=== PATIENT | female | born 1950 | race Hispanic/Latino ===

== ENCOUNTER 2018-05-03 14:28 | Inpatient (IN) | payer MEDICARE ==
[~2018-05-03] VITALS: Ht 154.9 cm; Wt 55.8 kg
--- NOTE | 2018-05-03 15:12 | Diagnostic Imaging Report ---
History:Fall, bleed Comparison studies:None Technique: Axial images were obtained from the skull base to the vertex. Coronal and sagittal images reconstructed from the axial data. Intravenous contrast: None Dose modulation, iterative reconstruction, and/or weight based adjustment of the mA/kV was utilized to reduce the radiation dose to as low as reasonably achievable. Findings: Scalp/skull: Central parieto-occipital scalp hematoma with laceration and subcutaneous emphysema. No underlying fracture. Extra-axial spaces: No masses. No fluid collections. Brain sulci: Mildly prominent. Ventricles: Mild compensatory dilatation. No hydrocephalus. Parenchyma: Few hypodensities in the supratentorial white matter are small vessel ischemic changes. No masses, hemorrhage, acute or chronic cortical vascular insults. Sellar/suprasellar region: No abnormalities. Craniocervical junction: Patent foramen magnum. No Chiari one malformation. Incidental findings: Atherosclerotic calcifications in the carotid siphons . Impression: No acute intracranial abnormalities. Central parieto-occipital scalp hematoma without underlying fracture Chronic findings: 1. Mild generalized volume loss. 2. Mild supratentorial white matter small vessel ischemic changes. Signed by: DR Stuart Kaur M.D. on 05/03/2018 3:09 PM
--- NOTE | 2018-05-03 15:25 | Diagnostic Imaging Report ---
History: Fall, bleed Comparison studies: None Technique: Axial images were obtained through the cervical region.. Coronal and sagittal images reconstructed from the axial data.. Intravenous contrast: None Dose modulation, iterative reconstruction, and/or weight based adjustment of the mA/kV was utilized to reduce the radiation dose to as low as reasonably achievable. Findings: Fractures: None. Soft tissues: No gross abnormalities. Atlantoaxial articulation: Mild degenerative changes without acute abnormality. Alignment: Normal lordosis. No scoliosis. Cervicomedullary junction: No abnormalities. The foramen magnum is patent. Vertebrae: No infection or neoplasm. Degenerative changes: Posterior disc osteophyte complex at C4-5, C5-6 results in mild canal stenosis. Uncinate process hypertrophy and facet hypertrophy results in mild bilateral foraminal narrowing at C5-6. IMPRESSION: 1. No acute cervical spine abnormalities. 2. Cannot exclude ligament, spinal cord and or vascular abnormalities on the basis of this examination. Signed by: DR Stuart Kaur M.D. on 05/03/2018 3:22 PM
--- NOTE | 2018-05-03 15:46 | Diagnostic Imaging Report ---
Examination: Single AP view of the chest. COMPARISON: None. INDICATION: Fall, laceration to back of head DISCUSSION: The lungs are well-inflated and without focal airspace consolidation, pleural effusion, or pneumothorax. Mild enlargement of the cardiac silhouette with fullness of the right hilum likely related to superimposition of vascular structures. No acute osseous abnormality. IMPRESSION: Mild cardiomegaly without vascular decompensation. Signed by: Dr. Gary Servin M.D. on 05/03/2018 3:43 PM
[2018-05-03 15:50] LABS: BASOPHILS # (AUTO) 0.1 (0.0-0.1); BASOPHILS % 0.6 % (0.0-1.0); EOSINOPHILS # (AUTO) 0.5 (0.0-0.4); EOSINOPHILS % 5.1 % (0.0-6.0); HEMATOCRIT 40.8 % (34.2-44.1); HEMOGLOBIN 13.4 g/dL (12.0-16.0); LYMPHOCYTES # (AUTO) 3.1 (1.0-3.2); LYMPHOCYTES % 31.8 % (18.0-39.1); MEAN CORPUSCULAR HEMOGLOBIN 28.2 pg (28-32); MEAN CORPUSCULAR HGB CONC 32.8 g/dL (31-35); MEAN CORPUSCULAR VOLUME 85.7 fL (81-99); MONOCYTES # (AUTO) 0.6 (0.2-0.8); MONOCYTES % 5.7 % (4.4-11.3); NEUTROPHILS # (AUTO) 5.4 (2.1-6.9); NEUTROPHILS % 56.5 % (38.7-80.0); PLATELET COUNT 157 x10e3/uL (140-360); RED BLOOD COUNT 4.76 x10e6/uL (3.6-5.1); RED CELL DISTRIBUTION WIDTH 13.9 % (11.7-14.4)
[2018-05-03 16:01] LABS: INR 0.95; PROTHROMBIN TIME 13.5 seconds (11.9-14.5)
[2018-05-03 16:02] LABS: PARTIAL THROMBOPLASTIN TIME 32.2 seconds (23.8-35.5)
[2018-05-03 16:11] LABS: ALANINE AMINOTRANSFERASE 18 IU/L (0-55); ALBUMIN 4.3 g/dL (3.5-5.0); ALBUMIN/GLOBULIN RATIO 1.3 (0.8-2.0); ALKALINE PHOSPHATASE 103 IU/L (40-150); ANION GAP 16.3 mmol/L (8-16); BLOOD UREA NITROGEN 24 mg/dL (7-26); BUN/CREATININE RATIO 27 (6-25); CALCIUM 9.9 mg/dL (8.4-10.2); CARBON DIOXIDE 23 mmol/L (22-29); CHLORIDE 102 mmol/L (98-107); CREATINE KINASE 61 IU/L (29-168); CREATININE, SERUM 0.88 mg/dL (0.57-1.11); EST GLOMERULAR FILTRATION RATE > 60 ML/MIN (60-); GLUCOSE 119 mg/dL (74-118); MAGNESIUM 2.3 MG/DL (1.3-2.1); POTASSIUM 4.3 mmol/L (3.5-5.1); SODIUM 137 mmol/L (136-145)
[2018-05-03 16:23] LABS: CLARITY,URINE SL CLOUDY (CLEAR); COLOR,URINE YELLOW (YELLOW); KETONES,URINE NEGATIVE (NEGATIVE); LEUKOCYTE ESTERASE ,URINE TRACE (NEGATIVE); NITRITE,URINE NEGATIVE (NEGATIVE); PROTEIN,URINE DIPSTICK 2+ (NEGATIVE); URINE UROBILINOGEN 0.2 mg/dL (0.2 - 1)
[2018-05-03 16:24] LABS: BILIRUBIN,URINE NEGATIVE (NEGATIVE)
--- NOTE | 2018-05-03 16:28 | NUR ---
PT STATES SHE LAST ATE AT BREAKFAST AROUND 0800 TODAY
[2018-05-03 16:33] LABS: RBC,URINE 0-5 /HPF (0-5); WBC,URINE (MAN) 0-5 /HPF (0-5)
[2018-05-03 16:34] LABS: BACTERIA,URINE FEW /HPF; EPITHELIAL CELLS,URINE FEW /LPF; RENAL EPITHELIAL CELLS,URINE FEW
[2018-05-03] MEDS ORDERED: ONDANSETRON HCL INJ 2MG/ML 2ML 2 MG/ML VIAL IV PRN (19:00)
[2018-05-03] MEDS ORDERED: DEXTROSE 50% SYRINGE 50 ML IV PRN (19:00)
[2018-05-03] MEDS ORDERED: ACETAMINOPHEN 325 MG TAB PO PRN (19:00)
--- OUTSIDE RECORDS SUMMARY | 2018-05-03 19:18 | XMS REPORT ---
Author [facility] Address Unknown Phone Unavailable Care Team Providers Care Warehouse Processor Name Role Phone Naomie DOYLE Unavailable Unavailable Problems This patient has no known problems. Allergies, Adverse Reactions, Alerts This patient has no known allergies or adverse reactions. Medications This patient has no known medications. Results Test Description Test Time Test Comments Text Results Atomic Results Result Comments CHEST SINGLE (PORTABLE) 2018-05-03 15:41:00 [place] [address] Patient Name: SAADIA SINGH MR #: [id number] : 1950 Age/Sex: 67/F Req #: [id number] Adm Physician: Ordered by: CALVIN TELLO SUPERVISOR DATA PROCESSING Report #: [id number] Location: ER Room/Bed: Procedure: [id number] DX/CHEST SINGLE (PORTABLE) Exam Date: 05/03/18 Exam Time: 1520 REPORT STATUS: Signed Examination: Single AP view of the chest. COMP ARISON: None. INDICATION: Fall, laceration to back of head DISCUSSION: The lungs are well-inflated and without focal airspace consolidation, pleural effusion, or pneumothorax. Mild enlargement of the cardiac silhouette with fullness of the right hilum likely related to superimposition of vascular structures. No acute osseous abnormality. IMPRESSION: Mild cardiomegaly without vascular decompensation. Signed by: Dr. Lizandro Mills M.D. on 05/03/2018 3:43 PM Dictated By: LIZANDRO MILLS MD [address] [place] ranscribed By: MARCELLA on 05/03/181542 COPY TO: CALVIN TELOL NP CT CERVICAL SPINE WO 2018-05-03 15:09:00 [place] [address] Patient Name: SAADIA SINGH MR #: [id number] : 1950 Age/Sex: 67/F Req #: [id number] Adm Physician: Ordered by: CALVIN TELLO NP Report #: [id number] Location: ER Room/Bed: Procedure: [id number] CT/CT CERVICAL SPINE WO Exam Date: 05/03/18 Exam Time: 1440 REPORT STATUS: Signed History: Fall, bleed Comparison studies: None T echnique: Axial images were obtained through the cervical region.. Coronal and sagittal images reconstructed from the axial data.. Intravenous contrast: None Dose modulation, iterative reconstruction, and/or weight based adjustment of the mA/kV was utilized to reduce the radiation dose to as low as reasonably achievable. Findings: Fractures: None. Soft tissues: No gross abnormalities. Atlantoaxial articulation: Mild degenerative changes without acute abnormality. Alignment: Normal lordosis. No scoliosis. Cervicomedullary junction: No abnormalities. The foramen magnum is patent. Vertebrae: No infection or neoplasm. Degenerative changes: Posterior disc osteophyte complex at C4-5, C5-6 results in mild canal stenosis. Uncinate process hypertrophy and facet hypertrophy results in mild bilateral foraminal narrowing at C5-6. IMPRESSION: 1. No acute cervical spine abnormalities. 2. Cannot exclude ligament, spinal cord and or vascular abnormalities on the basis of this examination. Signed by: DR Stuart Kaur M.D. on 05/03/2018 3:22 PM Dictated By: STUART CARLIN MD 1522 Transcribed By: MARCELLA on 05/03/18 1522 COPY TO: CALVIN TELLO NP CT BRAIN WO 2018-05-03 15:04:00 [place] [address] Patient Name: SAADIA SINGH MR #: [id number] : 1950 Age/Sex: 67/F Req #: [id number] Adm Physician: Ordered by: CALVIN TELLO SUPERVISOR DATA PROCESSING Report #: [id number] Location: ER Room/Bed: Procedure: [id number] CT/CT BRAIN WO Exam Date: 05/03/18 Exam Time: 1440 REPORT STATUS: Signed History:Fall, bleed Comparison studies:None Technique: Axial images were obtained from the skull base to the vertex. Coronal and sagittal images reconstructed from the axial data. Intravenous contrast: None Dose modulation, iterative reconstruction, and/or weight based adjustment of the mA/kV was utilized to reduce the radiation dose to as low as reasonably achievable. Findings: Scalp/skull: Central parieto-occipital scalp hematoma with laceration and subcutaneous emphysema. No underlying fracture. Extra-axial spaces: No masses. No fluid collections. Brain sulci: Mildly prominent. Ventricles: Mild compensatory dilatation. No hydrocephalus. Parenchyma: Few hypodensities in the supratentorial white matter are small vessel ischemic changes. No masses, hemorrhage, acute or chronic cortical vascular insults. Sellar/suprasellar region: No abnormalities. Craniocervical junction: Patent foramen magnum. No Chiari one malformation. Incidental findings: Atherosclerotic calcifications in the carotid siphons . Impression: No acute intracranial abnormalities. Central parieto- occipital scalp hematoma without underlying fracture Chronic findings: 1. Mild generalized volume loss. 2. Mild supratentorial white matter small vessel ischemic changes. Signed by: DR Stuart Kaur M.D. on 05/03/2018 3:09 PM Dictated By: STUART CARLIN MD Electronically Sig samra By: STUART CARLIN MD on 05/03/18 1500 Transcribed By: MARCELLA on 05/03/18 1505 COPY TO: CALVIN TELLO NP
--- NOTE | 2018-05-03 19:33 | NUR ---
WALKING ROUND DONE WITH BERTHA WINCHESTER
[2018-05-03] MEDS ORDERED: DORZOLAMIDE-TIM10 ML OU (19:35)
[2018-05-03] MEDS ORDERED: METFORMIN HCL850 MG PO (19:35)
[2018-05-03] MEDS ORDERED: LATANOPROST2.5 ML OU (19:35)
[2018-05-03] MEDS ORDERED: LOSARTAN POTASS25 MG PO (19:35)
[2018-05-03] MEDS ORDERED: ATORVASTATIN CA80 MG PO (19:35)
[2018-05-03] MEDS ORDERED: GLIMEPIRIDE4 MG PO (19:35)
[2018-05-03] MEDS ORDERED: ULTRAM 50MG50 MG PO (19:35)
[2018-05-03] MEDS ORDERED: CLOPIDOGREL75 MG PO (19:35)
[2018-05-03] MEDS ORDERED: CARVEDILOL3.125 MG PO (19:35)
[2018-05-03] MEDS ORDERED: MORPHINE SULFATE INJ 4 MG/ML INJ 1ML IV ONE (20:00)
[2018-05-03] MEDS ORDERED: ONDANSETRON HCL INJ 2MG/ML 2ML 2 MG/ML VIAL IV ONE (20:00)
[2018-05-03] MEDS: FAMOTIDINE 20 MG/2 ML VIAL IV SCH (21:00)
[2018-05-03] MEDS: INSULIN LISPRO 100 UNIT/1 ML 3ML VIAL SQ SCH (21:00)
[2018-05-03] MEDS: CARVEDILOL 3.125 MG TAB PO SCH (21:29)
--- NOTE | 2018-05-03 21:44 | NUR ---
PT PLACED ON TELEMETRY BOX 7. REPORT TO BERTHA CLINE. PT TRANSPORTED TO ROOM 114 BY EMT OLIVA.
[2018-05-03 21:50] VITALS: BP 143/69
[2018-05-03 22:20] VITALS: BP 143/69
[2018-05-03 22:30] VITALS: BP 143/69
[2018-05-04] VITALS (7 sets, daily range): BP systolic 98–177; BP diastolic 54–77
[2018-05-04 01:00] LABS: CREATINE KINASE MB 2.8 ng/mL (0-5.0)
[2018-05-04 06:03] LABS: BASOPHILS # (AUTO) 0.1 (0.0-0.1); BASOPHILS % 0.7 % (0.0-1.0); EOSINOPHILS # (AUTO) 0.3 (0.0-0.4); HEMOGLOBIN 12.7 g/dL (12.0-16.0); LYMPHOCYTES # (AUTO) 3.1 (1.0-3.2); LYMPHOCYTES % 36.8 % (18.0-39.1); MEAN CORPUSCULAR HEMOGLOBIN 27.9 pg (28-32); MEAN CORPUSCULAR HGB CONC 31.8 g/dL (31-35); MEAN CORPUSCULAR VOLUME 87.7 fL (81-99); MONOCYTES # (AUTO) 0.7 (0.2-0.8); MONOCYTES % 7.8 % (4.4-11.3); NEUTROPHILS # (AUTO) 4.3 (2.1-6.9); NEUTROPHILS % 50.5 % (38.7-80.0); PLATELET COUNT 150 x10e3/uL (140-360); RED BLOOD COUNT 4.56 x10e6/uL (3.6-5.1); RED CELL DISTRIBUTION WIDTH 14.1 % (11.7-14.4)
[2018-05-04 06:30] LABS: ALANINE AMINOTRANSFERASE 17 IU/L (0-55); ALBUMIN 3.7 g/dL (3.5-5.0); ALBUMIN/GLOBULIN RATIO 1.2 (0.8-2.0); ALKALINE PHOSPHATASE 87 IU/L (40-150); ANION GAP 13.2 mmol/L (8-16); BLOOD UREA NITROGEN 23 mg/dL (7-26); BUN/CREATININE RATIO 28 (6-25); CALCIUM 9.6 mg/dL (8.4-10.2); CARBON DIOXIDE 22 mmol/L (22-29); CHLORIDE 104 mmol/L (98-107); CHOL/HDL RATIO 3.9 (3.0-3.6); CHOLESTEROL 178 MD/DL (0-199); CREATININE, SERUM 0.81 mg/dL (0.57-1.11); EST GLOMERULAR FILTRATION RATE > 60 ML/MIN (60-); GLUCOSE 103 mg/dL (74-118); HDL CHOLESTEROL 46 MG/DL (40-60); LDL CHOLESTEROL 107 MG/DL (60-130); POTASSIUM 4.2 mmol/L (3.5-5.1); SODIUM 135 mmol/L (136-145); TRIGLYCERIDES 123 MG/DL (0-149)
--- NOTE | 2018-05-04 06:57 | NUR ---
REPORT GIVEN TO ONCOMING NURSE,WALKING ROUNDS MADE.PT RESTING IN BED WITH NO S/S OF DISTRESS.
[2018-05-04 07:29] LABS: CREATINE KINASE MB 3.1 ng/mL (0-5.0)
[2018-05-04] MEDS: INSULIN LISPRO 100 UNIT/1 ML 3ML VIAL SQ SCH ×4 (07:30→21:11)
[2018-05-04] MEDS: CARVEDILOL 3.125 MG TAB PO SCH ×2 (09:26→16:29)
[2018-05-04] MEDS: ASPIRIN 81 MG ENTERIC COATED PO SCH (09:26)
[2018-05-04] MEDS: FAMOTIDINE 20 MG/2 ML VIAL IV SCH (09:26)
--- NOTE | 2018-05-04 15:23 | NUR ---
Nutrition Screen Note RD Recommendation for Physician: -Continue ADA diet as ordered Plan of Care: RD following, monitoring for tolerance and adequacy Nutrition reason for involvement: Nutrition Risk Trigger MST Primary Diagnose(s): syncope and fall PMH: DM Ht: 64in Wt: 123lb BMI: 21.1kg/m2 IBW: 120lb RD Assessment: (05/04) Chart reviewed. Labs and meds reviewed. 67yo F, who was admitted s/p syncope. 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 Pt denied chewing/swallowing problems and nausea/vomiting. RN recorded 100% meal intake since admission. LBM 05/03. Son presented on bedside to translate as pt didnt speak Hebrew. Will cont to monitor. Please consult as needed. Current Diet: ADA diet Malnutrition Evaluation (05/04/2018) The patient does not meet criteria for a specified degree of malnutrition at this time. Will re-evaluate at follow-up as appropriate. Diet Education Needs Assessment: Diet education not indicated. Nutrition Care Level: low Signed: Cassidy Franco, MS, RD, LD
--- NOTE | 2018-05-04 15:58 | NUR ---
CASE MANAGEMENT ASSESSMENT Network Intern to bedside to discuss plan of care with patient/family. CM/SW role and care transitions discussed. Anticipated discharge plan discussed along with duration of care. CM/SW discussed patients right to make decisions in care. CM/SW work hours given. Pt asked CM to speak with her son Gary at bedside Patient lives: with her Yasmani Admit/Transfer: thru ED Hospital/ER visits since last admit: last hospitalization about 2 years ago; no ED visits POA/Emergency contact: Gary Beavers [phone]; Yasmani Beavers [phone] Current/Previous Home Health: none PCP/Follow-up Care: Dr. Ayala - pt advised to follow up with MD within 7 days of discharge or as instructed by MD Current/Previous DME: walker - but does not use Medications (referring to index hospitalization or the first time you were in the hospital) a. Were changes made in your medications when you were in the hospital on [date of index hospitalization]? n/a b. Did you understand the changes? n/a c. Were you able to obtain your new medications right away? n/a d. Were you able to take your medications like the doctor wanted you to? n/a e. Did the hospital give you an accurate, easy to understand list of medications when you left? n/a Scale of 1-10 how comfortable does patient feel with disease management in outpatient settin Other Services: none Employment Status: unemployed Areas of Concerns: syncope Referral Needs: none Education Needs: medical management IMM/MCCAIN given and signed (if applicable): MCCAIN in chart Goal for discharge: home CM/SW left business card at the bedside with contact information. Name and number was also written on the patients whiteboard. Patient verbalized understanding of discussion. CM will follow-up with ongoing discharge and transition of care needs.
[2018-05-04] MEDS: METFORMIN HCL 850 MG TAB PO SCH (16:58)
[2018-05-04] MEDS ORDERED: TRAMADOL HCL 50 MG TAB PO PRN (17:00)
[2018-05-04] MEDS ORDERED: ACETAMINOPHEN 325 MG TAB PO PRN ×2 (17:15→17:30)
[2018-05-04] MEDS ORDERED: DORZOLAMIDE/TIMOLOL (OPTH SOL) 10 ML DRPETTE OP SCH (17:15)
--- NOTE | 2018-05-04 17:21 | NUR ---
robert was not notified of consult until 1629 , ordered mri and eeg will see pt tomorrow .
--- NOTE | 2018-05-04 19:18 | Diagnostic Imaging Report ---
ELBOW RIGHT COMPLETE - 3 views HISTORY: Pain. Syncope and collapse. Fall. COMPARISON: None available. FINDINGS: Bones: No acute displaced fracture. Osseous alignment is within normal limits. Joints: The joint spaces are well-maintained. Soft tissues: The soft tissues appear unremarkable. IMPRESSION: No acute radiographic abnormality. Signed by: Dr. Nicholas Limon M.D. on 05/04/2018 7:15 PM
[2018-05-04] MEDS: ATORVASTATIN 40 MG TAB PO SCH (21:10)
[2018-05-04] MEDS: LATANOPROST(OPTH) 2.5 ML BTL OU SCH (21:15)
[2018-05-04] MEDS: DORZOLAMIDE/TIMOLOL/PF 1 EACH DROPERETTE OP SCH (21:24)
[2018-05-05] VITALS (8 sets, daily range): BP systolic 101–195; BP diastolic 53–85
--- NOTE | 2018-05-05 01:43 | History and Physical ---
HISTORY OF PRESENT ILLNESS: A 67-year-old female with past medical history positive for hypertension, diabetes mellitus type 2, coronary artery disease status post stent placement she was talking on the phone and she suddenly collapsed. She has before that happened. REVIEW OF SYSTEMS: CARDIOVASCULAR: No chest pain or palpitation. RESPIRATORY: No shortness of breath or cough. GASTROINTESTINAL: No nausea. No vomiting. PAST MEDICAL HISTORY: Positive for hypertension, diabetes mellitus type 2, coronary artery disease status post stent placement. SOCIAL HISTORY: She does not smoke. She does not drink. PHYSICAL EXAMINATION: VITAL SIGNS: Blood pressure 128/65, temperature 97.1, heart rate 75 per minute, respiratory rate 20 per minute, oxygen saturation 97%. LUNGS: Clear bilaterally. ABDOMEN: Soft. EXTREMITIES: Show no evidence of cyanosis or hematoma. LABORATORY DATA: BMP, sodium 135, potassium 4.2, chloride 104, CO2 is 22, BUN 23, creatinine 0.81, glucose 103. CBC, white . PT 13.5, INR 0.95, PTT 32.2. AST 18, ALT 17, total bilirubin 1.4, CT of the head show microvascular ischemic changes and no significant abnormality. CT of the cervical spine, no fracture. EKG shows sinus rhythm with occasional premature ventricular complexes, left atrial enlargement, right bundle-branch block normal sinus rhythm. There is no evidence of any abnormality. Urinalysis showed positive leukocytes. We are going to order a urine culture. FINAL IMPRESSION: 1. Syncopal episode, rule out seizure. 2. Hypertension. 3. Uncontrolled diabetes mellitus type 2. 4. . 5. Coronary artery disease status post stent placement. PLAN: We are going to resume her home medication. We are going to continue telemetry only for 24 hours. We are going to continue diabetic diet. Continue to monitor sugar before meals and at bedtime. We are going to continue physical and occupational therapy . Echocardiogram showed ejection fraction of 55%-60%, calcified aortic valve, mild mitral regurgitation, trace pericardial effusion. Neurology consult with Dr. Martinez for the possibility of seizures. We are going to order a urine culture also. MD BERYL Hopson/YARELIS /[id number]
[2018-05-05 06:43] LABS: BLOOD UREA NITROGEN 28 mg/dL (7-26); BUN/CREATININE RATIO 31 (6-25); CALCIUM 9.3 mg/dL (8.4-10.2); CARBON DIOXIDE 22 mmol/L (22-29); CHLORIDE 104 mmol/L (98-107); CREATININE, SERUM 0.89 mg/dL (0.57-1.11); EST GLOMERULAR FILTRATION RATE > 60 ML/MIN (60-); GLUCOSE 118 mg/dL (74-118); SODIUM 137 mmol/L (136-145)
[2018-05-05] MEDS: INSULIN LISPRO 100 UNIT/1 ML 3ML VIAL SQ SCH ×4 (07:30→20:36)
[2018-05-05] MEDS: GLIMEPIRIDE 2 MG TAB PO SCH (08:53)
[2018-05-05] MEDS: ASPIRIN 81 MG ENTERIC COATED PO SCH (08:53)
[2018-05-05] MEDS: CARVEDILOL 3.125 MG TAB PO SCH (08:53)
[2018-05-05] MEDS: DORZOLAMIDE/TIMOLOL/PF 1 EACH DROPERETTE OP SCH (08:53)
[2018-05-05] MEDS: METFORMIN HCL 850 MG TAB PO SCH ×2 (08:54→16:20)
[2018-05-05] MEDS: LOSARTAN POTASSIUM 25 MG TAB PO SCH (08:54)
[2018-05-05] MEDS: CLOPIDOGREL BISULFATE 75 MG TAB PO SCH (08:54)
[2018-05-05] MEDS ORDERED: SODIUM CHLORIDE 0.9% 1000ML 1,000 ML IV ONE (09:45)
--- NOTE | 2018-05-05 12:18 | Progress Note ---
DATE: SUBJECTIVE: The patient is doing well today, but yesterday blood pressure dropped in the orthostatic measurements. She is going to go for an MRI of the head and EEG today by Dr. Martinez, neurologist. The patient is undergoing physical and occupational therapy, doing better, but she is still very orthostatic. We are going to start her on IV fluids. PHYSICAL EXAMINATION: VITAL SIGNS: Blood pressure 136/73, temperature 96.5, heart rate 79 per minute, respiratory rate is 16 per minute, oxygen saturation 97%. HEART: Showed regular rhythm. No murmur or added sound. LUNGS: Clear bilaterally. ABDOMEN: Soft. EXTREMITIES: Show no evidence of cyanosis or hematoma. NEUROLOGIC: Alert and oriented x3. No motor deficits. FINAL IMPRESSION: 1. Episode of syncope, rule out seizures, rule out orthotopic hypotension. 2. History of hypertension. 3. Uncontrolled diabetes mellitus type 2. 4. Coronary artery disease, status post stent. 5. Acute renal failure. PLAN: We are going to start normal saline at 125 mL/hour for 1 L. We are going to recheck the BMP later on in the day. We are going to continue monitoring orthostatic blood pressures today. The patient's medications are going to be metformin 800 mg twice a day, glimepiride 6 mg daily. Continue aspirin 81 mg daily, Zofran 4 mg q.4 hours as needed. Continue carvedilol 3.125 mg twice a day, latanoprost at bedtime, Tylenol 325 mg q.4 hours as needed for pain or fever, Plavix 75 mg daily, losartan 25 mg daily, tramadol 50 mg twice a day, and Lipitor 80 mg daily. We are going to get MRI of the head and EEG and when the orthostatic hypotension resolve, the patient may be able to go home. MD BERYL Hopson/YARELIS /[id number]
--- NOTE | 2018-05-05 15:00 | Diagnostic Imaging Report ---
History: Syncope Comparison studies: CT head 05/03/2018 Technique: Sagittal T2; axial DWI, FLAIR, MPGR, T1, Coronal FLAIR. Intravenous contrast: None Findings: Scalp: Evolving midline parieto-occipital scalp hematoma . No masses . Bone marrow: Normal in signal intensity. Extra-axial: No masses, no fluid collections. Brain sulci: Mildly prominent. Ventricles: Normal in size . No hydrocephalus . Parenchyma: Few small T-2/flair hyperintensities of the periventricular and deep white matter No masses, hemorrhage, acute or chronic vascular insults. Suprasellar region: No abnormalities. Craniocervical junction: No abnormalities. Patent foramen magnum. No Chiari one malformation. Vessels: Normal flow-voids in the arteries and sinuses. Slitlike lens on the right eye globe, related to previous intervention IMPRESSION: 1. No acute abnormalities.Evolving midline parieto-occipital scalp hematoma 2. Mild chronic microvascular ischemic changes of the white matter and mild volume loss. Signed by: DR Stuart Kaur M.D. on 05/05/2018 2:57 PM
--- NOTE | 2018-05-05 18:04 | Consultation ---
DATE OF CONSULTATION: 05/05/2018 Cardiology Consultation REASON FOR CONSULTATION: Syncope. HISTORY OF PRESENT ILLNESS: Ms. Beavers is a pleasant 67-year-old woman with a history of diabetes mellitus type 2, hypertension, and CAD with previous HI status post PCI. Follows as outpatient with . She presents to [facility] after developing a sudden episode of loss of consciousness while she was standing talking on the phone. She does not recall any preceding symptoms. She has no other previous episodes like this. On telemetry, she is noted to have episodes of sinus arrest with junctional escape rhythm mixed with episodes of 3-second pauses as well as an EKG with sinus rhythm and bifascicular block concerning for significant conduction disorder. Her beta-bautista has been placed on hold and so as the other chronotropic negative medications, which the patient is not on. REVIEW OF SYSTEMS: A 12-system review is negative except for as noted above. PAST MEDICAL HISTORY: Significant for hypertension, diabetes, CAD. SOCIAL HISTORY: No smoking, alcohol, or drugs. PHYSICAL EXAMINATION: VITAL SIGNS: Temperature 96.5, heart rate 79, blood pressure 136/72, respiratory rate 16, O2 sat 97%. GENERAL: No acute distress, alert and active. NECK: No JVD. CHEST: Clear to auscultation. CARDIOVASCULAR: Regular rate and rhythm. Normal S1 and S2. No S3. No S4. No murmurs. No rubs. ABDOMEN: Soft, nontender, nondistended. EXTREMITIES: No cyanosis, clubbing, or edema. MEDICATIONS: Her cardiovascular medications were reviewed. Coreg 3.125 mg b.i.d., placed on hold/discontinued; clopidogrel 75 mg daily; losartan 25 mg daily; atorvastatin 80 mg at bedtime; dorzolamide-timolol eye drops, which ultimately will be placed on hold. LABORATORY DATA: Creatinine is 0.8. Hemoglobin 12.7, platelet counts 150. INR is 0.9. Normal transaminases. ASSESSMENT: 1. Syncope, arrhythmogenic. 2. Sinus arrest with junctional escape rhythm. 3. Bifascicular block. 4. Coronary artery disease status post percutaneous coronary intervention. 5. Diabetes mellitus. 6. Hypertension. 7. Dyslipidemia. RECOMMENDATIONS: 1. Hold all chronotropic negative medications including carvedilol and timolol drops. 2. Keep on telemetry. 3. EP consult for pacemaker placement. 4. statin as well as other antihypertensives. 5. Echocardiogram. MD FLOR Rodgers/MODL /[id number]
--- NOTE | 2018-05-05 18:13 | NUR ---
NOTIFIED DR. SALINAS REGARDING ELEVATED BP 183/82 NEW ORDERS RECEIVED FOR PRN HYDRALAZINE.
--- NOTE | 2018-05-05 18:13 | NUR ---
SPOKE TO DR. MARIA NOTIFIED REGARDING CONSULT. STATES TO KEEP PT NPO AFTER MIDNIGHT AND WILL SEE PT IN THE MORNING.
[2018-05-05] MEDS ORDERED: HYDRALAZINE HCL 20 MG/ML VIAL IV PRN (18:15)
--- NOTE | 2018-05-05 19:04 | Electroencephalogram ---
DATE OF STUDY: 05/05/2018 REQUESTING PHYSICIAN: Mariola Martinez MD HISTORY: This 67-year-old woman with a history of syncope versus seizure is having an EEG for evaluation of epileptiform activity. The patient is not taking any medications which might affect the EEG. TECHNIQUE: This is a routine, portable EEG, recorded digitally, using the International 10-20 electrode placement system, and done in the inpatient setting with the patient awake. The EEG is adequate for interpretation. DESCRIPTION: Well-organized, well-sustained, 9-10 Hz activity is best seen symmetrically over the posterior head regions. No focal or epileptiform activity is recorded. Sleep is not recorded. Photic stimulation does produce a driving response. Hyperventilation does not produce slowing. INTERPRETATION: This EEG is normal with the patient awake. No epileptiform discharges are seen. Mariola Martinez MD CP/MODL /[id number] MTDD
--- NOTE | 2018-05-05 19:25 | NUR ---
patient received. patient is resting in bed, easy to arouse. Resp even and unlabored. No acute distress noted. Patient denies of any pain or discomfort. right elbow bruise noted. Family at bed side. call light within reach. instruct to call for assistance. bed low/locked. continue to monitor closely
[2018-05-05] MEDS: ATORVASTATIN 40 MG TAB PO SCH (21:19)
[2018-05-05] MEDS: LATANOPROST(OPTH) 2.5 ML BTL OU SCH (21:19)
--- NOTE | 2018-05-05 21:35 | NUR ---
low BS 65 noted. snack given and recheck BS 187
[2018-05-06] VITALS (8 sets, daily range): BP systolic 96–164; BP diastolic 52–73
--- NOTE | 2018-05-06 02:22 | Consultation ---
DATE OF CONSULTATION: 05/05/2018 Neurology Consult HISTORY OF PRESENT ILLNESS: Ms. Beavers is a 67-year-old right-hand dominant woman with past medical history significant for hypertension, hyperlipidemia, diabetes mellitus, and coronary artery disease, admitted to [facility] on May 03, 2018, following loss of consciousness. On the day of admission, the patient was standing when she experienced the sudden onset of dizziness, which is further described as a lightheaded sensation as well as tunneling of vision. These symptoms lasted for a few minutes, then spontaneously resolved. Shortly thereafter, the patient lost consciousness and fell to the floor, hitting her right elbow as well as her head on the floor. The duration of unconsciousness is unknown. The event was not witnessed. However, Ms. Beavers reports she was speaking to her on the telephone when she lost consciousness. When she regained consciousness, her was calling her back. When she regained consciousness, the patient knew who she was, knew where she was, and recognized her 's voice on the telephone. She was only confused as to why she was lying on the floor. Ms. Beavers does not report tongue biting or bladder/bowel incontinence associated with loss of consciousness. She does not report diffuse myalgias following loss of consciousness. However, she does report pain in her right arm, especially over the elbow, where she fell. Ms. Beavers does not report experiencing similar symptoms previously. There is no history of febrile seizures. The patient had a brother, who had seizures. Ms. Beavers does not report a prior head injury nor does she report prior meningitis/encephalitis. REVIEW OF SYSTEMS: Tunneling of vision, syncope, right arm pain, dizziness, which is further described as lightheadedness. Otherwise, a 12-point review of systems is negative. PAST MEDICAL HISTORY: Hypertension, hyperlipidemia, diabetes mellitus, coronary artery disease, and glaucoma. PAST SURGICAL HISTORY: Cardiac catheterization with stent placement, right eye surgery for glaucoma resulting in loss of vision in the right eye, multiple sections, and right cataract removal. PAST HOSPITALIZATIONS: Surgeries/procedures as listed, childbirth. FAMILY MEDICAL HISTORY: Hypertension and diabetes mellitus. As stated in the history of present illness, Ms. Beavers had a brother, who did have seizures. SOCIAL HISTORY: Ms. Beavers is . She is retired. The patient does not report current or prior tobacco, alcohol, or recreational drug use. HOME MEDICATIONS: Plavix 75 mg by mouth daily, carvedilol 3.125 mg by mouth twice daily, losartan 25 mg by mouth daily, atorvastatin 80 mg by mouth at bedtime daily, glimepiride 6 mg by mouth daily, metformin 850 mg by mouth twice daily, dorzolamide-timolol one drop in each eye twice daily, latanoprost one drop in each eye at bedtime daily, and tramadol 50 mg by mouth twice daily as needed for pain. ALLERGIES: NO KNOWN DRUG ALLERGIES. NO KNOWN FOOD ALLERGIES. NO KNOWN ALLERGIES TO LATEX. NO KNOWN ALLERGIES TO IODINE OR OTHER CONTRAST MATERIALS. PHYSICAL EXAMINATION: VITAL SIGNS: Height 70 inches, weight 123 pounds, BMI 17.6 kg/meters squared, blood pressure 127/64 mmHg, pulse 73 beats per minute, respiratory rate 18 breaths per minute, and oxygen saturation 96% on room air. GENERAL: The patient is awake and alert, does not appear distressed. HEENT: Normocephalic, atraumatic. The left pupil is round and reactive to light. The right pupil is opacified. Moist mucous membranes. NECK: Supple. No appreciable thyromegaly. No appreciable carotid bruits. CARDIOVASCULAR: S1, S2, regular rate and rhythm. No murmurs, rubs, or gallops. RESPIRATORY: Clear to auscultation bilaterally. No wheezes, rhonchi, or rales. EXTREMITIES: The skin is warm and dry. No clubbing, cyanosis, or edema. The posterior tibial and dorsalis pedis pulses are 1+ and symmetric. SKIN: No rashes or lesions. NEUROLOGIC: MEMORY/ATTENTION: The patient is awake and alert, oriented to person, place, time, and situation. CRANIAL NERVES: Cranial nerve I-not tested. Cranial nerves II, III, IV, and -the left pupil is round and reactive to light. The right pupil is opacified. Extraocular movements intact. No nystagmus. Cranial nerve V-sensation to light touch and pinprick is intact in the bilateral V1-V3 distributions. Strength in the temporalis and mastoid muscles is within normal limits. Cranial nerve VII-the face is symmetric as are all facial movements. Strength is within normal limits. Cranial nerve VIII-hearing is intact to finger rub bilaterally. Cranial nerve IX and X-the soft palate elevates equally and symmetrically. Cranial nerve XI-normal strength to the bilateral sternocleidomastoid and trapezius muscles. Cranial nerve XII-the tongue protrudes in the midline and moves symmetrically from [id number]. STRENGTH: Bulk is normal. Strength is 5/5 in the bilateral deltoids, biceps, triceps, wrist flexors and extensors, finger flexors and extensors, intrinsic hand muscles, hip flexors, knee flexors and extensors, ankle dorsiflexor and plantar flexion, and intrinsic foot muscles. Tone is normal. DTRs: Deep tendon reflexes are 1+ and symmetric at the triceps, biceps, brachioradialis, and patellars. Deep tendon reflexes are absent and symmetric at the Achilles. Plantar responses are flexor bilaterally. SENSATION: Sensation is intact to light touch and pinprick in both arms and both legs. CEREBELLAR: Wtdofz-mthx-eqsxyt and heel-burks movements are intact without dysmetria or other impairment. GAIT: Deferred. SPEECH: Spontaneous speech is normal without appreciable dysarthria or aphasia. Repetition is intact. INVOLUNTARY MOVEMENTS: None. PRONATOR DRIFT: None. LABORATORY DATA: The most recent basic metabolic panel revealed an elevated BUN of 28 and an elevated BUN to creatinine ratio 31. Serum glucoses have ranged from 80 to 262 in the past 24 hours. The liver function panel collected on May 04, 2018, is unremarkable. Cardiac enzymes are negative x3. Total cholesterol 178, triglycerides 123, LDL cholesterol 107, and HDL cholesterol 46. The CBC with differential and platelets is unremarkable. The coagulation profile is within normal limits. A urinalysis collected on May 03, 2018, revealed slightly cloudy urine with 2+ protein, trace blood, trace leukocyte esterase, and few urine renal epithelial cells. Urine culture collected on May 03, 2018, reveals no growth at 18-24 hours. DIAGNOSTIC STUDIES: Electrocardiogram on 05/03/2018: Sinus rhythm at 80 beats per minute with occasional premature ventricular complexes. Right bundle-branch block. Left posterior bifascicular block. Chest x-ray on 05/03/2018: Mild cardiomegaly without vascular decompensation. CT of the cervical spine on 05/03/2018: 1. No acute cervical spine abnormalities. 2. Cannot exclude ligament, spinal cord, or vascular abnormalities on the basis of this examination. CT of the brain without contrast on 05/03/2018: On my review, there is no evidence of recent large territorial ischemia, hemorrhage, mass, or mass effect. There is mild diffuse cerebral atrophy with compensatory dilatation of the ventricles. There are findings compatible with mild chronic small vessel ischemic disease. A central parieto-occipital scalp hematoma without underlying fracture is observed. Elbow x-ray on 05/04/2018: No acute radiographic abnormality. Echocardiogram on 05/04/2018: Ejection fraction of 55%-60%. Trace pericardial effusion. Calcified aortic valve. Degenerative mitral valve with mild mitral regurgitation. MRI of the brain without contrast on 05/05/2018: On my review, there is no evidence of recent large territorial ischemia, hemorrhage, mass, or mass effect. Once again, there is mild diffuse cerebral atrophy with compensatory dilatation of the ventricles. There are scattered, nonspecific T2/FLAIR hyperintense foci of the periventricular and deep white matter compatible with mild chronic small vessel ischemic disease. An evolving midline parieto-occipital scalp hematoma is observed. EEG on 05/05/2018: No epileptiform discharges. Please see dictated report for full details. ASSESSMENT AND PLAN: Ms. Beavers is a 67-year-old woman with multiple vascular risk factors, admitted to [facility] on May 03, 2018, with syncope versus seizure. The patient's neurological examination is nonfocal with the exception of opacification of the right pupil. The patient's laboratory data and other diagnostic studies have been reviewed and are documented above. Based on the description of the event, there is a low suspicion for seizure. There are no findings on either the MRI of the brain without contrast or the EEG suggestive of a predisposition to seizures. Ms. Beavers has been on telemetry throughout her hospitalization. In the past 24 hours, the patient was noted to have 2 pauses, both approximately 3 seconds in duration. These pauses in cardiac activity are the likely cause of the patient's recent syncopal event. Cardiology has been consulted and Ms. Beavers is pending pacemaker placement. Thank you for this consultation. There are no recommendations from the Neurology Service at this time. Please call again with any questions or concerns. Time spent: Seventy minutes. Mariola Martinez MD CP/YARELIS /[id number] COLLINS
[2018-05-06 06:07] LABS: ANION GAP 13.9 mmol/L (8-16); BLOOD UREA NITROGEN 33 mg/dL (7-26); BUN/CREATININE RATIO 39 (6-25); CALCIUM 9.2 mg/dL (8.4-10.2); CARBON DIOXIDE 19 mmol/L (22-29); CHLORIDE 108 mmol/L (98-107); CREATININE, SERUM 0.84 mg/dL (0.57-1.11); EST GLOMERULAR FILTRATION RATE > 60 ML/MIN (60-); GLUCOSE 116 mg/dL (74-118); POTASSIUM 3.9 mmol/L (3.5-5.1); SODIUM 137 mmol/L (136-145)
[2018-05-06] MEDS: INSULIN LISPRO 100 UNIT/1 ML 3ML VIAL SQ SCH ×4 (07:30→21:00)
[2018-05-06] MEDS: GLIMEPIRIDE 2 MG TAB PO SCH (07:30)
[2018-05-06] MEDS: ASPIRIN 81 MG ENTERIC COATED PO SCH (07:41)
[2018-05-06] MEDS: LOSARTAN POTASSIUM 25 MG TAB PO SCH (07:41)
[2018-05-06] MEDS: METFORMIN HCL 850 MG TAB PO SCH ×2 (07:41→16:06)
[2018-05-06] MEDS: CLOPIDOGREL BISULFATE 75 MG TAB PO SCH (07:41)
--- NOTE | 2018-05-06 13:04 | NUR ---
RECEIVED CALL FROM DR. MARIA STATES PACEMAKER PLACEMENT WILL BE TOMORROW AND PT CAN EAT.
--- NOTE | 2018-05-06 15:12 | Consultation ---
DATE OF CONSULTATION: May 06, 2018 ELECTROPHYSIOLOGY CONSULT REFERRING PHYSICIAN: Dr. Barrios REASON FOR CONSULTATION: Syncope. HISTORY OF PRESENT ILLNESS: This is a 67-year-old woman with a history of hypertension and history of paroxysmal atrial fibrillation, who presented after an episode of syncope. She was at home and all of a sudden passed out. She was out for a few seconds and does not remember anything about the episode. When she recovered, she had no neurological deficit and recovered spontaneously. She was admitted for observation. On EKG and telemetry, she has been in sinus rhythm with episodes of severe bradycardia with sinus pauses for about 3 or 4 seconds. Also, she has a baseline right bundle-branch block and left posterior fascicular block. We were consulted to consider a pacemaker. REVIEW OF SYSTEMS CONSTITUTIONAL: Negative. CARDIOVASCULAR: As per HPI. RESPIRATORY: Negative. GASTROINTESTINAL: Negative. GENITOURINARY: Negative. MUSCULOSKELETAL: Negative. EYES: Negative. ENT: Negative. ALLERGY AND IMMUNOLOGY: Negative. PSYCHIATRIC: Negative. PAST MEDICAL HISTORY: Hypertension, atrial fibrillation. SURGICAL HISTORY: Negative. FAMILY HISTORY: No premature coronary artery disease. SOCIAL HISTORY: Denies alcohol, smoking. PHYSICAL EXAMINATION VITAL SIGNS: Blood pressure 130/60, pulse 50, respirations 20, O2 sat 98%. GENERAL: No acute distress. HEENT: Moist mucous membranes. CARDIOVASCULAR: Regular. RESPIRATORY: Clear. GASTROINTESTINAL: Abdomen is soft, nontender. MUSCULOSKELETAL: 2+ distal pulses. NEUROLOGIC: No focal deficit. SKIN: No lesions. EKG: Sinus rhythm, right bundle-branch block, left posterior fascicular block. IMPRESSION 1. Syncope. 2. Sick sinus syndrome with significant sinus pauses and episodes of atrial asystole with junctional escape rhythm at around 30 beats per minute and sinus pauses for about 3 seconds. RECOMMENDATIONS: I had a discussion with the patient. She has classic sick sinus syndrome and indication for pacing. The procedure, benefits and risks were discussed in detail. The patient voices an understanding and wishes to proceed. We will plan for a dual-chamber pacemaker placement. Thank you for letting us participate in Ms. Beavers's healthcare. Job#: [id number]
--- NOTE | 2018-05-06 15:53 | Progress Note ---
DATE: Internal Medicine Progress Note. SUBJECTIVE: A 67-year-old female, who came in here with syncopal episode. She was found to have sinus pauses on the telemetry. She is going to have a pacemaker placed by . PHYSICAL EXAMINATION: VITAL SIGNS: Blood pressure 127/61, temperature , heart rate 67 per minute, respiratory rate 18 per minute, and oxygen saturation 97%. HEART: Showed regular rhythm. No murmur or added sound. LUNGS: Clear bilaterally. LABORATORY DATA: On the BMP, sodium 137, potassium 3.9, chloride 108, CO2 19, BUN 33, creatinine 0.84, glucose 116. On the CBC, white blood count 8.51, hemoglobin 12.7, hematocrit 40.0, and platelet count 150,000. PT 13.5, INR 0.95, PTT 32.2. AST 18, ALT 17, total bilirubin 1.4 . FINAL IMPRESSION: 1. Episode of syncope, most likely secondary to sick sinus syndrome. 2. History of hypertension. 3. History of coronary artery disease. 4. Uncontrolled diabetes mellitus type 2. PLAN OF TREATMENT: has been consulted from electrophysiology point of view for possible pacemaker placement. We are going to continue with Zofran 4 mg q.4 hours as needed. We are going to monitor blood sugar before meals and at bedtime, losartan 25 mg daily, q.4 hours as needed for hypertension, Plavix 75 mg daily along with the aspirin. Continue Lipitor 80 mg daily, metformin 850 mg twice a day is going to be placed on hold because of renal insufficiency. Continue glimepiride 6 mg daily, tramadol 50 mg twice a day as needed, latanoprost one drop to each eye at bedtime, Tylenol 325 mg q.4 hours. We are going to repeat her BMP tomorrow. Continue telemetry. MD BERYL Hopson/YARELIS /[id number]
[2018-05-06] MEDS: LATANOPROST(OPTH) 2.5 ML BTL OU SCH (21:12)
[2018-05-06] MEDS: ATORVASTATIN 40 MG TAB PO SCH (21:12)
--- NOTE | 2018-05-06 23:45 | Progress Note ---
DATE: 05/06/2018 Cardiology progress note. SUBJECTIVE: No new complaints. Denies any recurrent lightheadedness or syncope. OBJECTIVE: VITAL SIGNS: Temperature 97.1, heart rate 83, respiratory rate 18, blood pressure 96/52, O2 sat 95% on room air. GENERAL: No acute distress. Alert. NECK: No JVD. CHEST: Clear to auscultation. CARDIOVASCULAR: Regular rate and rhythm. Normal S1 and S2. No S3. No S4. ABDOMEN: Soft, nontender. EXTREMITIES: No edema. MEDICATIONS: Cardiovascular medications were reviewed. Atorvastatin 80 mg q.h.s., hydralazine p.r.n., clopidogrel 75 mg daily, losartan 25 mg daily, aspirin 81 mg daily, tramadol p.r.n. LABORATORY DATA: Studies reviewed. Glucose 245, creatinine 0.8 BUN 33. MRI brain, mild chronic microvascular ischemic changes mild volume loss. No acute abnormalities. Evolving midline parieto-occipital scalp hematoma noted. X-ray with no acute radiographic abnormality. Cervical spine CT, no acute cervical spine abnormalities. Cannot exclude spinal cord abnormalities on basis of this exam. ASSESSMENT: 1. Syncope. 2. Sick sinus syndrome with significant pauses and episodes of atrial asystole with junctional escape rhythm around 30 beats per minute, sinus pauses about 3 seconds. 3. Bifascicular block. 4. Coronary artery disease, status post percutaneous coronary intervention, remote. 5. Diabetes mellitus. 6. Hypertension. 7. Dyslipidemia. RECOMMENDATIONS: 1. I will avoid chronotropic negative medications including carvedilol and timolol drugs. 2. Maintain telemetry in place. 3. EP evaluated the patient and plans for pacemaker. I appreciate input. 4. Continue statin and other antihypertensives with holding parameters. 5. Echocardiogram with hyperdynamic left ventricular systolic function with LVEF 65% to 70% and impaired LV relaxation. Vini Denney MD AFV/MODL /[id number]
[2018-05-07] VITALS (11 sets, daily range): BP systolic 114–176; BP diastolic 55–79
[2018-05-07 06:03] LABS: ANION GAP 14.2 mmol/L (8-16); BLOOD UREA NITROGEN 28 mg/dL (7-26); BUN/CREATININE RATIO 34 (6-25); CALCIUM 9.6 mg/dL (8.4-10.2); CARBON DIOXIDE 21 mmol/L (22-29); CHLORIDE 107 mmol/L (98-107); CREATININE, SERUM 0.83 mg/dL (0.57-1.11); EST GLOMERULAR FILTRATION RATE > 60 ML/MIN (60-); GLUCOSE 141 mg/dL (74-118); POTASSIUM 4.2 mmol/L (3.5-5.1); SODIUM 138 mmol/L (136-145)
--- NOTE | 2018-05-07 07:17 | NUR ---
Rcved patient in report this am. Patient is asleep in bed at this time. No s/s distress noted
[2018-05-07] MEDS: INSULIN LISPRO 100 UNIT/1 ML 3ML VIAL SQ SCH ×4 (07:30→21:00)
[2018-05-07] MEDS: GLIMEPIRIDE 2 MG TAB PO SCH (07:30)
--- NOTE | 2018-05-07 07:56 | NUR ---
Orthostatic VS: lyin/79, 80. Sittin/62, 74. Standin/64, 98
[2018-05-07] MEDS: METFORMIN HCL 850 MG TAB PO SCH (07:58)
[2018-05-07] MEDS: ASPIRIN 81 MG ENTERIC COATED PO SCH (09:00)
[2018-05-07] MEDS: CLOPIDOGREL BISULFATE 75 MG TAB PO SCH (09:00)
[2018-05-07] MEDS: LOSARTAN POTASSIUM 25 MG TAB PO SCH (09:00)
[2018-05-07] MEDS ORDERED: BACITRACIN 50,000 UNIT VIAL ONE ×3 (09:25→11:48)
[2018-05-07] MEDS ORDERED: SODIUM CHLORIDE 0.9% 1000ML 3,000 ML ONE (09:25)
[2018-05-07] MEDS ORDERED: VANCOMYCIN 1GM/NS 250 ML 250 ML ONE (09:25)
[2018-05-07] MEDS ORDERED: LIDOCAINE HCL 1% LOCAL INJ 20 ML VIAL ONE (09:26)
--- NOTE | 2018-05-07 09:30 | NUR ---
Patient went to can labeler at this time.
[2018-05-07] MEDS ORDERED: MIDAZOLAM HCL 2 MG/2 ML VIAL ONE ×2 (10:07→10:51)
[2018-05-07] MEDS ORDERED: FENTANYL CITRATE/PF 100MCG/2 ML INJ ONE (10:08)
[2018-05-07] MEDS ORDERED: SODIUM CHLORIDE 0.9% 1000ML 1,000 ML ONE (10:31)
--- NOTE | 2018-05-07 11:17 | NUR ---
IMM EXPLAINED TO PT, SIGNED AND PLACED IN CHART COPY TO PT IN CARE TRANSITION FOLDER
--- NOTE | 2018-05-07 11:25 | NUR ---
Patient returned from cemetery laborer at this time. Left chest wall dressing and pacemaker site clean and dry. Patient is awake and alert. Left arm in sling. Family at bedside. No c/o pain at this time.
[2018-05-07] MEDS ORDERED: BACITRACIN 50,000 UNIT VIAL IR ONE (11:44)
[2018-05-07] MEDS ORDERED: MORPHINE SULFATE 2 MG/ML SYR 1ML IV PRN (11:45)
[2018-05-07] MEDS ORDERED: MORPHINE SULFATE INJ 4 MG/ML INJ 1ML IV PRN (11:45)
--- NOTE | 2018-05-07 16:53 | Progress Note ---
DATE: Internal Medicine Progress Note SUBJECTIVE: The patient is status post permanent pacemaker placement, feeling better. PHYSICAL EXAMINATION: VITAL SIGNS: Blood pressure 176/79, heart rate 83 per minute, respiratory rate is 16 per minute, temperature 96.8, and oxygen saturation 98%. HEART: Showed regular rhythm. No murmur or added sounds. LUNGS: Clear bilaterally. LABORATORY DATA: BMP; sodium 138, potassium 4.2, chloride 107, CO2 of 21, BUN 28, creatinine 0.83, glucose 141. CBC; white blood count 8.51, hemoglobin 12.7, hematocrit 40.0, and platelet count 150,000. PT 13.5, PTT 32.2, INR 0.95. AST 18, ALT 17, total bilirubin 1.4, and alkaline phosphatase of 87. FINAL IMPRESSION: 1. Sick sinus syndrome status post permanent pacemaker placement. 2. Hypertension. 3. Syncopal episode. 4. Diabetes mellitus type 2. 5. Acute renal failure. PLAN: We are going to continue aspirin 81 mg daily, Zofran 4 mg q.4 hours as needed. Monitor blood sugar a.c. and h.s. Losartan 25 mg, hydralazine 10 mg IV q.4 hours, Plavix 75 mg daily, Lipitor 80 mg daily, metformin 850 mg twice a day, which will be placed on hold. Continue glimepiride 3 mg daily, latanoprost at bedtime one drop to each eye, Tylenol 325 mg q.4 hours as needed for pain or fevers. MD BERYL Hopson/YARELIS /[id number]
--- NOTE | 2018-05-07 19:02 | NUR ---
RECEIVED PATIENT IN BED, AAOX3, STABLE CONDITION. LEFT CHEST WALL DRSG C/D/I, LEFT ARM IN SLING. NO NEEDS VOICED AT THIS TIME. BED LOCKED AND IN LOWEST POSITION, CALL LIGHT WITHIN EASY REACH. FAMILY MEMBERS TO BEDSIDE. WILL CONTINUE TO MONITOR THE PATIENT CLOSELY.
--- NOTE | 2018-05-07 19:47 | Operative Report ---
DATE OF PROCEDURE: May 07, 2018 PREPROCEDURE DIAGNOSES 1. Syncope. 2. Sick sinus syndrome. 3. Symptomatic bradycardia. POSTPROCEDURE DIAGNOSES 1. Syncope. 2. Sick sinus syndrome. 3. Symptomatic bradycardia. ESTIMATED BLOOD LOSS: 5 mL. COMPLICATIONS: None. PROCEDURES PERFORMED 1. Dual-chamber pacemaker placement. 2. Moderate sedation. Moderate conscious sedation was provided under my direct supervision by a sedation-trained nurse. Sedation approximate time 30 minutes, Versed and fentanyl. There were no complications. See sedation form for details. DESCRIPTION OF PROCEDURE: After informed consent was obtained, patient was brought to the electrophysiology laboratory in a fasting nonsedated state. Area over her chest was prepped and draped in the usual sterile fashion. Moderate sedation and prophylactic antibiotic were given. A 1% lidocaine was used as local anesthetic and a 3-cm skin incision was made in the left subclavicular area. Electrocautery, sharp and blunt dissection were used to reach the muscular fascia and a pocket was created for eventual implantation of the device. Vascular access was obtained x2 in the left axillary vein using the modified Seldinger technique under fluoroscopic guidance. Two 6-Turkmen sheaths were placed. The ventricular lead advanced to the RV apex. R-wave 11, pacing 0.6 at 0.5, impedance 900. Atrial lead to the right atrial appendage. P-wave 3. pacing 1.3 at 0.5, impedance 950. Sheaths were removed from the body. Leads were secured to fascia using #0 silk. Pocket was irrigated with antibiotic solution using the pulse corporate operations compliance manager. Hemostasis was meticulous. Leads were connected to the device and entire pacemaker system placed in the pocket. Incision was closed using Vicryl and Dermabond. Patient tolerated the procedure well. Procedure was deemed complete. SUMMARY OF HARDWARE IMPLANTED 1. The new pacemaker is [employer], model #L311, [id number]. 2. The atrial lead is [employer], 7740, [id number]. 3. The right ventricular lead is [employer], 7741, [id number] IMPRESSION: Successful dual-chamber pacemaker implant via left axillary vein. PLAN 1. Routine postop monitoring on telemetry bed. 2. Chest x-ray. 3. Follow up in 2 weeks. Job#: [id number] RTY
[2018-05-07] MEDS: LATANOPROST(OPTH) 2.5 ML BTL OU SCH (21:29)
[2018-05-07] MEDS: ATORVASTATIN 40 MG TAB PO SCH (21:29)
[2018-05-08] VITALS: BP 109/57
[2018-05-08 04:00] VITALS: BP 139/61
--- NOTE | 2018-05-08 05:36 | Progress Note ---
DATE: 05/07/2018 Cardiology progress note. SUBJECTIVE: No complaints. Undergoing pacemaker today. OBJECTIVE: VITAL SIGNS: Temperature 96.8, heart rate 83, blood pressure 121/66, respiratory rate 16, and O2 saturation 98%. GENERAL: No acute distress. Alert. NECK: No JVD. CHEST: Clear to auscultation. CARDIOVASCULAR: Regular rate and rhythm. Normal S1 and S2. ABDOMEN: Soft. EXTREMITIES: Trace edema. CARDIOVASCULAR MEDICATIONS: 1. Aspirin 81 mg daily. 2. Losartan 25 mg daily. 3. Atorvastatin 80 mg q.h.s. 4. Clopidogrel 75 mg daily. STUDIES: Creatinine 0.8. Hemoglobin 12.7. INR 0.9. ASSESSMENT: 1. Syncope in the setting of sinus arrest and pauses with junctional escape rhythm. 2. Bifascicular block. 3. Hypertension. 4. History of coronary artery disease. 5. Diabetes mellitus. RECOMMENDATIONS: Pacemaker implanted today. Continue current cardiovascular medications. MD FLOR Rodgers/YARELIS /[id number] MTDD
[2018-05-08 06:26] LABS: ANION GAP 13.1 mmol/L (8-16); BLOOD UREA NITROGEN 26 mg/dL (7-26); BUN/CREATININE RATIO 34 (6-25); CALCIUM 9.3 mg/dL (8.4-10.2); CARBON DIOXIDE 21 mmol/L (22-29); CHLORIDE 110 mmol/L (98-107); CREATININE, SERUM 0.77 mg/dL (0.57-1.11); EST GLOMERULAR FILTRATION RATE > 60 ML/MIN (60-); GLUCOSE 108 mg/dL (74-118); POTASSIUM 4.1 mmol/L (3.5-5.1); SODIUM 140 mmol/L (136-145)
[2018-05-08 08:33] VITALS: BP 158/69
[2018-05-08] MEDS: GLIMEPIRIDE 2 MG TAB PO SCH (08:42)
[2018-05-08] MEDS: LOSARTAN POTASSIUM 25 MG TAB PO SCH (08:43)
[2018-05-08] MEDS: INSULIN LISPRO 100 UNIT/1 ML 3ML VIAL SQ SCH ×3 (08:43→16:30)
[2018-05-08] MEDS: ASPIRIN 81 MG ENTERIC COATED PO SCH (08:43)
[2018-05-08] MEDS: CLOPIDOGREL BISULFATE 75 MG TAB PO SCH (08:43)
[2018-05-08 09:02] VITALS: BP 158/69
[2018-05-08 12:30] VITALS: BP 130/70
--- NOTE | 2018-05-08 15:14 | Diagnostic Imaging Report ---
EXAMINATION: CHEST 2 VIEWS INDICATION: Status post pacemaker placement. COMPARISON: Chest radiograph 05/03/18. FINDINGS: TUBES and LINES: Left-sided dual-chamber pacemaker with leads overlying the right atrium and right ventricle. LUNGS: Lungs are well inflated. Lungs are clear. There is no evidence of pneumonia or pulmonary edema. PLEURA: No pleural effusion or pneumothorax. HEART AND MEDIASTINUM: The cardiomediastinal silhouette is unremarkable. BONES AND SOFT TISSUES: No acute osseous lesion. Soft tissues are unremarkable. UPPER ABDOMEN: No free air under the diaphragm. IMPRESSION: Left-sided pacemaker as above. No evidence of pneumothorax. Signed by: Dr. Shanda Delcid MD on 05/08/2018 3:11 PM
[2018-05-08] MEDS ORDERED: MINOCYCLINE HCL50 MG PO (15:26)
--- NOTE | 2018-05-08 15:30 | NUR ---
SPOKE WITH MD SALINAS REGARDING X RAY RESULTS. MD IRBY DISCHARGE AT THIS TIME AND CONTINUATION OF HOME MEDS WAITING ON MD BACA TO CALL BACK FOR A DISCHARGE ORDER
--- NOTE | 2018-05-08 16:56 | NUR ---
DISCHARGE INSTRUCTIONS AND PRESCRIPTIONS GIVEN, PT VERBALIZED UNDERSTANDING. IV DC, PRESSURE APPLIED AND TAPED. PT IS READY FOR DC
[2018-05-08 17:22] VITALS: BP 141/98
--- NOTE | 2018-05-08 17:30 | Progress Note ---
DATE: 05/08/2018 Cardiology Progress Note SUBJECTIVE: Denies any recurrent lightheadedness. No chest pain or shortness of breath. Doing well status post pacemaker placement. OBJECTIVE: VITAL SIGNS: Revealed temperature of 96.6, heart rate 83, blood pressure 158/69, respiratory rate 18, and O2 saturation 96%. GENERAL: In no acute distress. Alert and active. NECK: No JVD. CHEST: Clear to auscultation. CARDIOVASCULAR: Regular rate and rhythm. Normal S1 and S2. Systolic ejection murmur 2/6. No S3, no S4. ABDOMEN: Soft and nontender. EXTREMITIES: No edema. Pacemaker pocket site looks okay. MEDICATIONS: Cardiovascular medications reviewed. Losartan 25 mg daily, clopidogrel 75 mg daily, and atorvastatin 80 mg at bedtime. LABORATORY DATA: Studies reviewed. Creatinine is 0.7. Hemoglobin 12.7, white blood cells 8.5, and platelets are 150. INR 0.95. AST 18, ALT 17, and alkaline phosphatase 87. ASSESSMENT: 1. Syncope, arrhythmogenic in the setting of sinus arrest and junctional escape rhythm. 2. Bifascicular block. 3. Diabetes mellitus, type 2. 4. Hypertension. 5. Dyslipidemia. 6. Coronary artery disease. RECOMMENDATIONS: Await 2-view chest x-ray. If looking okay, may discharge with outpatient followup with EP in 2 weeks and Cardiology followup in 4-6 weeks on current cardiovascular medications. Pacemaker interrogation today revealed normal functioning device. The patient is advised to ambulate and confirm symptom free status. MD FLOR Rodgers/YARELIS /[id number]
--- NOTE | 2018-05-08 17:36 | NUR ---
PT OFF UNIT TO HOME AT THIS TIME
--- NOTE | 2018-05-10 11:18 | NUR ---
Dictated DC summary: [id number]
--- NOTE | 2018-05-11 10:54 | Discharge Summary ---
ADMITTING DIAGNOSES: 1. Syncope (arrhythmogenic). 2. Sinus arrest with junctional escape rhythm. 3. Bifascicular block. 4. Coronary artery disease (history of percutaneous coronary intervention). 5. Type 2 diabetes mellitus. 6. Hypertensive heart disease. 7. Dyslipidemia. DISCHARGE DIAGNOSES: 1. Status post dual-chamber pacemaker placement because of syncope from sick sinus syndrome causing symptomatic bradycardia. 2. Coronary artery disease (history of percutaneous coronary intervention). 3. Hypertensive heart disease. 4. Type 2 diabetes mellitus. 5. Dyslipidemia. HOSPITAL COURSE: This 67-year-old woman, who was initially admitted to [facility] with a diagnosis of arrhythmogenic syncope. Specifically, she was found to have sinus arrest with junctional escape rhythm as well as bifascicular block. The patient was seen by Dr. Vini Denney, the cook ship during this hospitalization. The patient underwent echocardiogram during this hospitalization, which revealed a preserved left ventricular ejection fraction of 65-70%, did reveal diastolic filling pattern indicating impaired relaxation consistent with diastolic heart failure. The patient was seen by an electrophysiology cook ship during this hospitalization, Dr. Tavarez, who performed successful dual-chamber pacemaker placement. This procedure was performed because of the syncope and symptomatic bradycardia that she experienced from her sick sinus syndrome. The patient tolerated the surgery quite well. The patient's condition on discharge was stable. Beta blockade, namely carvedilol was discontinued during this hospitalization. DISCHARGE MEDICATIONS: 1. Losartan 25 mg daily. 2. Clopidogrel 75 mg daily. 3. Aspirin 81 mg daily. 4. Glimepiride 6 mg daily. 5. Atorvastatin 80 mg at bedtime. 6. Latanoprost 1 drop to each eye every night. 7. Metformin 850 mg twice a day. 8. Minocycline 100 mg b.i.d. for 7 days. FOLLOWUP INSTRUCTIONS: The patient is instructed to follow up with: 1. Dr. Barrios, cook ship within [address] Tavarez, electrophysiology cook ship in 2 weeks. MD DENEEN Pedroza/YARELIS /[id number] cc: MD Rasta Rodgers MD Luis A Sabatini, MD
== END 2018-05-08 17:25 | disposition home or self-care (01) | DRG 243 ==
LOC: ER 14:32 → ERHOLD 19:16 → INTOOBSV 19:16 → MED/SURG 21:52 → OBSVTOIN 05-05 17:45
PROVIDERS: ADMIT Internal Medicine; ATTEND Internal Medicine
PROC: 0JH606Z Insertion of Pacemaker, Dual Chamber into Chest Subcutaneous Tissue and Fascia, Open Approach (ICD-10-PCS; principal; 2018-05-07)
PROC: 02H63JZ Insertion of Pacemaker Lead into Right Atrium, Percutaneous Approach (ICD-10-PCS; 2018-05-07)
PROC: 02HK3JZ Insertion of Pacemaker Lead into Right Ventricle, Percutaneous Approach (ICD-10-PCS; 2018-05-07)
DX: I49.5 Sick sinus syndrome (principal); I45.2 Bifascicular block; I50.30 Unspecified diastolic (congestive) heart failure; N17.9 Acute kidney failure, unspecified; I25.10 Atherosclerotic heart disease of native coronary artery without angina pectoris; I10 Essential (primary) hypertension; E83.41 Hypermagnesemia; E11.65 Type 2 diabetes mellitus with hyperglycemia; I25.2 Old myocardial infarction; Z95.5 Presence of coronary angioplasty implant and graft; Z83.3 Family history of diabetes mellitus; Z82.49 Family history of ischemic heart disease and other diseases of the circulatory system; Z79.84 Long term (current) use of oral hypoglycemic drugs; I45.5 Other specified heart block; I11.0 Hypertensive heart disease with heart failure
CPT/HCPCS: 33208; 36415; 70450; 70551; 71045; 71046; 72125; 80048; 80053; 80061; 81001; 82550; 82553; 82948; 83735; 84484; 85025; 85610; 85730; 87086; 93005; 93306; 95812; 96372; 96374; 97139; 99285; C1785; C1898; G0378; J0360; J2001; J2250; J2270; J2405; J3370; J7030

== ENCOUNTER → 2024-10-14 | Outpatient (REF) | payer MEDICARE ==
[~2024-10-14] MED LIST: ASPIRIN81 MG PO; ATORVASTATIN CA80 MG PO; CARVEDILOL3.125 MG PO; CLOPIDOGREL75 MG PO; DORZOLAMIDE-TIM10 ML OU; GLIMEPIRIDE4 MG PO; LATANOPROST2.5 ML OU; LOSARTAN POTASS25 MG PO; METFORMIN HCL850 MG PO; MICARDIS40 MG PO; MINOCYCLINE HCL50 MG PO; ULTRAM 50MG50 MG PO
== END ==
LOC: RAD 12:52
PROVIDERS: ATTEND Internal Medicine
DX: Z01.818 Encounter for other preprocedural examination (principal)
CPT/HCPCS: 71046